=== PATIENT | female | born 1995 | race Caucasian/White ===

== ENCOUNTER 2018-06-21 18:51 | Emergency (ER) | payer BC ==
[~2018-06-21] VITALS: Ht 157.5 cm; Wt 88.5 kg
[2018-06-21] MEDS ORDERED: BEYAZ PO (19:04)
--- NOTE | 2018-06-21 19:30 | NUR ---
Dr. Raman at bedside for MSE.
--- NOTE | 2018-06-21 19:40 | NUR ---
Patient discharged to home in stable conditon. Written and verbal after care instructions given. Patient verbalizes understanding of instructions. Pt ambulated out of ER with steady gait, no acute signs of distress, VSS, all belongings taken.
[2018-06-21 19:41] VITALS: BP 118/83
== END 2018-06-21 19:41 | disposition home or self-care (01) ==
LOC: ER 18:54
DX: L03.312 Cellulitis of back [any part except buttock and flank] (principal); Z88.8 Allergy status to other drugs, medicaments and biological substances
CPT/HCPCS: A4663

== ENCOUNTER 2018-06-23 14:29 | Emergency (ER) | payer BC ==
[~2018-06-23] VITALS: Ht 157.5 cm; Wt 88.5 kg
[~2018-06-23 14:29] MED LIST: BEYAZ PO
[2018-06-23] MEDS ORDERED: CEPH-570 PO (14:41)
[2018-06-23] MEDS ORDERED: SULF1TAB48 PO (14:41)
[2018-06-23] MEDS ORDERED: IBUP-1958 PO (14:41)
[2018-06-23] MEDS ORDERED: ACET1TAB12 PO (14:41)
[2018-06-23] MEDS ORDERED: LIDOCAINE 1%-EPI 1:100,000 20 ML VIAL ONE (15:26)
[2018-06-23] MEDS ORDERED: LIDOCAINE 1%-EPI 1:100,000 20 ML VIAL TP ONE (15:30)
--- NOTE | 2018-06-23 16:06 | NUR ---
Patient discharged to home in stable conditon. Written and verbal after care instructions given. Patient verbalizes understanding of instructions.pt with mother.
== END 2018-06-23 16:12 | disposition home or self-care (01) ==
LOC: ER 14:30
DX: L03.113 Cellulitis of right upper limb (principal); L02.413 Cutaneous abscess of right upper limb; Z88.8 Allergy status to other drugs, medicaments and biological substances
CPT/HCPCS: A4217; A4663; J3490